=== PATIENT | male | born 1985 ===

== ENCOUNTER 2022-09-19 10:17 | Outpatient (CLI) | payer OTHER, SELFPAY ==
--- NOTE | ~2022-09-19 | MR_ITS ---
EXAMINATION: MR knee RT wo con DATE: 09/19/2022 11:03 INDICATION: Generalized right knee pain 3 weeks post twisting injury with patellar dislocation and sp ontaneous reduction. TECHNIQUE: Magnetic resonance imaging (MRI) of the right knee was performed without intravenous contr ast. Sequences included coronal PD-weighted FSE, coronal PD-weighted FS FSE, sagittal T2-weighted FS E, sagittal PD-weighted FS FSE and axial PD weighted fat saturated FSE. COMPARISON: None. FINDINGS: Medial compartment: Complex medial meniscal tear which includes a laterally displaced bucket-handle tear comprising the m ajority of the meniscal tissue which extends anteroposteriorly across the intercondylar eminence. The re is small amount additional secondary tearing along both the displaced and nondisplaced portion of the meniscus. Articular cartilage is normal. Lateral compartment: No definitive lateral meniscal tear. There is a linear vertical cleft extending between the medial si de the posterior horn of the lateral meniscus and the meniscal femoral ligament of [place]. The clef t extends approximately mid way across the posterior horn with the insertion of the ligament upon the posterior horn remaining within the normal limits of 14 mm from the lateral margin of the posterior horn. Articular cartilage is normal. Patellofemoral compartment: Articular cartilage is normal. Ligaments and tendons: Complete tear of the anterior cruciate ligament. Posterior cruciate ligament is normal. The medial co llateral ligament and fibular collateral ligament complex are normal. The extensor mechanism is jennifer l with no evident patellofemoral retinacular tear. The visualized medial and lateral hamstring tendon s as well as the iliotibial band are normal. Fluid: Large right knee joint effusion. Moderate-sized Mcgraw cyst, potentially partially ruptured with nonlo culated fluid extending caudally along the peripheral fascia of the medial head of the gastrocnemius. No loose osteochondral bodies identified. Osseous/other: There is anterior subluxation of the tibia relative to the femoral condyles consistent with an anteri or cruciate ligament tear. Small low signal intensity bone island at the superomedial aspect of the l ateral trochlea. Otherwise normal bone marrow signal with no fracture or pathologic marrow replacing process. No fracture or pathologic marrow replacing process. IMPRESSION: 1. Complete tear of the anterior cruciate ligament. 2. Complex medial meniscal tear with laterally displaced bucket-handle flap which comprising majority of the meniscal tissue of the body and posterior horn. 3. Large right knee joint effusion and moderate-sized Mcgraw's cyst. Reviewed, dictated and finalized at location A. IMPRESSION: 1. Complete tear of the anterior cruciate ligament. 2. Complex medial meniscal tear with laterally displaced bucket-handle flap whi ch comprising majority of the meniscal tissue of the body and posterior horn. 3. Large right knee joint effusion and moderate-sized Mcgraw's cyst.
== END 2022-09-19 10:18 ==
LOC: MICIMG 10:19
PROVIDERS: PCP Family Medicine Sports Medicine; Visit Provider Family Medicine Sports Medicine
DX: S83.231A Complex tear of medial meniscus, current injury, right knee, initial encounter (principal); X58.XXXA Exposure to other specified factors, initial encounter; S83.511A Sprain of anterior cruciate ligament of right knee, initial encounter; M25.461 Effusion, right knee; M71.21 Synovial cyst of popliteal space [Baker], right knee
CPT/HCPCS: 73721